=== PATIENT | female | born 1965 | race Caucasian/White ===

== ENCOUNTER 2016-11-18 12:34 | Emergency (ER) | payer OTHER ==
--- NOTE | 2016-11-19 08:46 | ER ---
ADMIT: 11/18/2016 RM/LOC: ER [facility] MR#: [id number] [facility] [id number] ODILIA SILVER [address] [place] [address] Emergency Room Report SEX: F AGE: 50 : 1965 DATE: 11/18/2016 This 50-year-old female traveling from [place] to [place] to visit family, sudden onset of flank pain radiating down to the groin. See T sheet for history and physical. CT scan reveals a distal right ureter stone. The patient was given Toradol with rapid resolution of pain. UA was significant for 11 to 15 rbc's otherwise unremarkable. She was given a prescription for Zofran, Priddy, and Flomax and encouraged to follow up this week with primary doctor if symptoms did not improve. Johnson South MD/ darnell JOB #: [id number] CC: Johnson South MD, Attending Physician Ra Beck MD, Family Physician
== END 2016-11-18 14:30 | disposition home or self-care (01) ==
LOC: ER 12:34
DX: N13.2 Hydronephrosis with renal and ureteral calculous obstruction (principal); E03.9 Hypothyroidism, unspecified; Z79.899 Other long term (current) drug therapy; Z98.890 Other specified postprocedural states; Z88.6 Allergy status to analgesic agent